=== PATIENT | female | born 1935 | race Caucasian/White ===

== ENCOUNTER 2019-10-08 07:48 | Outpatient (CLI) | payer MEDICARE, OTHER, SELFPAY ==
--- NOTE | 2019-10-08 08:00 | CT_ITS ---
WS: [id number] CTA THORACIC TECHNIQUE: Contrast enhanced CTA of the thoracic aorta with coronal and sagittal reformatted images a nd maximum intensity projection (MIP) images. CLINICAL INFORMATION: 12 MONTH F/U COMPARISON: CTA 02/05/2018 and 03/17/2017 CTA chest November 06, 2013 DLP: [id number] scans at [facility] use at least one of these dose optimization techniques: automat ed exposure control; mA and/or kV adjustment per patient size (includes targeted exams where dose is matched to clinical indication); or iterative reconstruction. FINDINGS: Prior postoperative changes ascending aortic aneurysm repair with graft placement. This is stable in appearance since the prior examination. No evidence of aortic leak. No evidence of intramural hematom a. Aortic arch calcification. 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 Normal flow in the celiac artery with contribution from both lumens. 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 Moderate atheromatous di sease involving the upper abdominal aorta. 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 No mediastinal or hilar lymph adenopathy. Left axillary clips. Bilateral renal cortical atrophy. Sternotomy. Partially visualized r enal cortical cysts. Small esophageal hiatal hernia. CT/CT angio chest [id number] IMPRESSION: 1. Prior postoperative changes ascending thoracic aortic aneurysm repair with graft placement. This is unchanged in appearance since the prior examination. N o evidence of enlargement or aortic leak. 2. 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 Otherwise unchanged. 3. 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 Moderate to severe calcification at the SMA origin and renal artery origins.
[2019-10-08 08:38] LABS: Blood Urea Nitrogen 23 mg/dL (8-23)
[2019-10-08] MEDS: iohexol 350 mg/mL 100 mL Btl IV (08:51)
== END 2019-10-08 07:49 | disposition home or self-care (01) ==
PROVIDERS: Radiology Neuroradiology; Family Provider Family Medicine; Visit Provider Internal Medicine Cardiovascular Disease
DX: I71.4 Abdominal aortic aneurysm, without rupture (principal); I70.0 Atherosclerosis of aorta; I70.1 Atherosclerosis of renal artery
CPT/HCPCS: 71275; 82565; 84520; Q9967